=== PATIENT | female | born 1985 | race Caucasian/White ===

== ENCOUNTER 2016-10-19 22:00 | Emergency (ER) | payer MEDICAID ==
[2016-10-19 22:12] VITALS: BP 125/94; PULSE 104; RESP 18; TEMP 97.7; O2SAT 99
--- NOTE | 2016-10-19 22:38 | EDPHY ---
H & P Stated Complaint: shoulder injury s/p mechanical fall Time Seen by Provider: 10/19/16 22:12 HPI/ROS: CHIEF COMPLAINT: right shoulder injury HISTORY OF PRESENT ILLNESS: 31-year-old female arrives via private vehicle complaining of acute right shoulder pain after she sustained a mechanical fall this morning landing on her right shoulder. She has had reproducible pain ever since. No head injury. No midline C-spine pain. No peripheral paresthesia, weakness, numbness. Not a syncopal episode. Purely mechanical. REVIEW OF SYSTEMS: A ten point review of systems was performed and is negative with the exception of the items mentioned in the HPI PAST MEDICAL/SURGICAL HISTORY: Prior history of right AC separation SOCIAL HISTORY: denies alcohol use at time of incident PHYSICAL EXAM 1) GENERAL: Well-developed, well-nourished, alert and oriented. Appears to be in no acute distress. Answering questions appropriately. 2) HEAD: Normocephalic, atraumatic 3) HEENT: Pupils equal, round, reactive to light bilaterally. Negative Horners. Nasopharynx, oropharynx, clear. No deformity or angulation of nose. No septal hematoma. No rhinorrhea. No oral trauma. Ears bilaterally with normal tympanic membranes. No hemotympanum. No fluid or blood in the external auditory canal. No raccoon eyes. No Saldana sign. . 4) NECK: No cervical collar is on. Posterior cervical spine is nontender, no stepoff, no effusion. Full range of motion which does not elicit any midline cervical spine pain, no posterior midline tenderness, no step-off. 5) LUNGS: Clear to auscultation bilaterally, no wheezes, no rhonchi, no retractions. . 6) HEART: Regular rate and rhythm, 7) ABDOMEN: No guarding, no rebound, no focal tenderness, no peritoneal signs, no signs of trauma, no ecchymosis 8) MUSCULOSKELETAL: Right upper extremity: Area of erythema to the right scapula with underlying tenderness. Reproducible right shoulder pain with range of motion. No step-off. Bilateral deltoid sensation intact. Radial ulnar median nerve function intact. Moving all extremities, no focal areas of tenderness, no obvious trauma. 9) BACK: No midline vertebral tenderness, no fluctuance, no step-off, no obvious trauma, no visual or palpable abnormality. 10) SKIN: No laceration. No abrasion DIFFERENTIAL DIAGNOSIS: [ in no particular order including but not limited to fracture, dislocation, sprain, strain - Personal History LMP (Females 10-55): IUD In Place Current Tetanus Diphtheria and Acellular Pertussis (TDAP): Yes Tetanus Vaccine Date: within last 10 years - Medical/Surgical History Hx Asthma: No Hx Chronic Respiratory Disease: No Hx Diabetes: No Hx Cardiac Disease: Yes Hx Renal Disease: No Hx Cirrhosis: No Hx Alcoholism: No Hx HIV/AIDS: No Hx Splenectomy or Spleen Trauma: No Other PMH: anxiety, ADHD, shoulder issues, foot surgery, MVP - Social History Smoking Status: Current some day smoker Constitutional: Initial Vital Signs Temperature (C) 36.5 C 10/19/16 22:06 Heart Rate 104 H 10/19/16 22:06 Respiratory Rate 18 10/19/16 22:06 Blood Pressure 125/94 H 10/19/16 22:06 O2 Sat (%) 99 10/19/16 22:06 O2 Delivery Mode Room Air Allergies/Adverse Reactions: levofloxacin [From Levaquin] Allergy (Mild, Verified 10/05/14 10:38) body aches Home Medications: Medication Instructions Recorded Gabapentin [Fanatrex] 0 mg PO 02/28/11 AMITRIPTYLINE HCL [Amitriptyline 100 mg PO HS 10/05/14 100 mg] Amphet Asp and D/Amphet [Adderall] 10 mg PO DAILY 10/05/14 Escitalopram Oxalate [Lexapro 10 10 mg PO 10/05/14 MG] Zolpidem Tartrate [Ambien] 5 mg PO HS 10/05/14 Xanax 10/19/16 Medical Decision Making - Diagnostics Imaging Results: Xray of the right shoulder interpreted by myself: no definitive acute osseous abnormality ED Course/Re-evaluation: I had a lengthy discussion with the patient, informed her of the limitations of x-ray in the diagnosis of acute right shoulder injury. She has been informed that non osseous injury is not ruled out. Stressed orthopedic follow-up. She has her own pre-hospital sling. Discussed usage of sling and usual and customary orthopedic precautions and instructions Departure - Departure Disposition: Home, Routine, Self-Care Clinical Impression: Sprain of right shoulder Qualifiers: Encounter type: initial encounter Shoulder sprain type: unspecified sprain Qualified Code(s): S43.401A - Unspecified sprain of right shoulder joint, initial encounter Condition: Good Instructions: Shoulder Sprain (ED) Additional Instructions: Return to the ER immediately if you experience discoloration, have worsening pain, numbness, tingling, or any other symptoms that concern you. If you received x-rays in the emergency department today, be advised, that ligamentous , tendon, muscular, and other non-bony injury cannot be fully ruled out. Try to keep your affected extremity elevated above the level of your chest, and keep cold packs on the affected area, for the next 48 hours. Referrals: Nancy Cisneros MD [Medical Doctor] - 5-7 days, call for appt. (Dr. Nancy Cisneros orthopedic surgeon)
[2016-10-19] MEDS ORDERED: IBUPROFEN 600 MG TAB PO ONE (23:07)
== END 2016-10-19 23:00 | disposition home or self-care (01) ==
DX: S43.401A Unspecified sprain of right shoulder joint, initial encounter (principal); F17.200 Nicotine dependence, unspecified, uncomplicated; W18.39XA Other fall on same level, initial encounter; Y99.8 Other external cause status

== ENCOUNTER 2016-12-01 13:19 | Emergency (ER) | payer MEDICAID ==
[2016-12-01 13:25] VITALS: TEMP 98.2
[2016-12-01] MEDS ORDERED: LORazepam 1 MG TAB PO ONE ×2 (14:36→21:40)
--- NOTE | 2016-12-01 14:39 | EDPHY ---
H & P Stated Complaint: pt with insomnia/jp/therapist is out of town Source: Patient Exam Limitations: No limitations - Personal History LMP (Females 10-55): IUD In Place Current Tetanus/Diphtheria Vaccine: Yes Tetanus Vaccine Date: within last 10 years - Medical/Surgical History Hx Asthma: No Hx Chronic Respiratory Disease: No Hx Diabetes: No Hx Cardiac Disease: Yes Hx Renal Disease: No Hx Cirrhosis: No Hx Alcoholism: No Hx HIV/AIDS: No Hx Splenectomy or Spleen Trauma: No Other PMH: anxiety, ADHD, shoulder issues, foot surgery, MVP - Family History Significant Family History: No pertinent family hx - Social History Smoking Status: Current some day smoker Alcohol Use: Sober Drug Use: None Time Seen by Provider: 12/01/16 14:27 HPI/ROS: 2149:M1 hold. Patient signed over to Dr. Cerna at 10:00 p.m. shift change. ( Dakota Medrano) CHIEF COMPLAINT: Jp HISTORY OF PRESENT ILLNESS: Patient is a 31-year-old female with a recent diagnosis of bipolar 1 experiencing manic episode. She states that she has not slept in 4 days. She did not take her Adderall today but did take her Klonopin , Lexapro, gabapentin and amitriptyline. She states that she has been gardening for the last 48 hours. She states that her hands and legs are extremely sore. She denies any fevers or recent illness. She is followed by her therapist Ms Santillan. Her boyfriend brought her here for evaluation. She denies suicidality. She denies hallucinations but states that she has trouble controlling her thoughts. REVIEW OF SYSTEMS: Constitutional: denies: chills, fever, recent illness, recent injury EENTM: denies: blurred vision, double vision, nose congestion Respiratory: denies: cough, shortness of breath Cardiac: denies: chest pain, irregular heart rate, lightheadedness, palpitations Gastrointestinal/Abdominal: denies: abdominal pain, diarrhea, nausea, vomiting, blood streaked stools Genitourinary: denies: dysuria, frequency, hematuria, pain Musculoskeletal: denies: joint pain, muscle pain Skin: denies: lesions, rash, jaundice, bruising Neurological: denies: headache, numbness, paresthesia, tingling, dizziness, weakness Hematologic/Lymphatic: denies: blood clots, easy bleeding, easy bruising Immunologic/allergic: denies: HIV/AIDS, transplant EXAM: GENERAL: Anxious HEAD: Atraumatic, normocephalic. EYES: Pupils equal round and reactive to light, extraocular movements intact, sclera anicteric, conjunctiva are normal. ENT: TMs normal, nares patent, oropharynx clear without exudates. Moist mucous membranes. NECK: Normal range of motion, supple without lymphadenopathy or JVD. LUNGS: Breath sounds clear to auscultation bilaterally and equal. No wheezes rales or rhonchi. HEART: Regular rate and rhythm without murmurs, rubs or gallops. ABDOMEN: Soft, nontender, normoactive bowel sounds. No guarding, no rebound. No masses appreciated. BACK: No CVA tenderness, no spinal tenderness, step-offs or deformities EXTREMITIES: Normal range of motion, no pitting or edema. No clubbing or cyanosis. NEUROLOGICAL: Cranial nerves II through XII grossly intact. Normal speech, normal gait. 5/5 strength, normal movement in all extremities, normal sensation PSYCH: Anxious, tremulous, answers questions appropriately SKIN: Warm, dry, normal turgor, no visible rashes or lesions. (Kiran Mendez) Constitutional: Initial Vital Signs Temperature (C) 36.8 C 12/01/16 13:22 Heart Rate 114 H 12/01/16 13:22 Respiratory Rate 22 H 12/01/16 13:22 Blood Pressure 111/88 H 12/01/16 13:22 O2 Sat (%) 98 12/01/16 13:22 O2 Delivery Mode Room Air Allergies/Adverse Reactions: levofloxacin [From Levaquin] Allergy (Mild, Verified 10/05/14 10:38) body aches Home Medications: Medication Instructions Recorded Gabapentin [Fanatrex] 0 mg PO 02/28/11 AMITRIPTYLINE HCL [Amitriptyline 100 mg PO HS 10/05/14 100 mg] Amphet Asp and D/Amphet [Adderall] 10 mg PO DAILY 10/05/14 Escitalopram Oxalate [Lexapro 10 10 mg PO 10/05/14 MG] Zolpidem Tartrate [Ambien] 5 mg PO HS 10/05/14 Xanax 10/19/16 Medical Decision Making ED Course/Re-evaluation: 2217: [place] with mental health re-evaluated her. This patient not on M1 hold. This patient was to go to the [facility]. However patient declined to go to the [facility]. She has declined to go to the [facility]. Patient would like to go home. She is not suicidal or homicidal she is not acutely manic at this time. She has follow-up care in place. This was fine with mental health truck spotter EDINSON. I cannot keep this patient on an M1 hold. She does not meet M1 hold criteria she is not suicidal. (Dakota Medrano) 4:00 p.m. the patient has been medically cleared. She does have amphetamine her blood from her Adderall prescription. Mental Health will evaluate her now. She is not currently on a hold because she is not a flight risk. 6:55 p.m. the patient evaluated by [facility]. They plan to admit her to [facility] and will begin looking for placement. 9:00 p.m. we continue to await psychiatric placement. Care transferred to Dr. Dakota Medrano. (Kiran Mendez) Differential Diagnosis: Partial list of the Differential diagnosis considered include but were not limited to; depression, bipolar, jp, substance abuse and although unlikely based on the history and physical exam, I also considered infection, head injury. (Kiran Mendez) - Data Points Laboratory Results: Laboratory Results 12/01/16 13:50 12/01/16 13:50 Medications Given: Discontinued Medications Lorazepam (Ativan) 1 mg PO EDNOW ONE Stop: 12/01/16 14:37 Last Admin: 12/01/16 15:45 Dose: 1 mg Lorazepam (Ativan) 1 mg PO EDNOW ONE Stop: 12/01/16 21:41 Last Admin: 12/01/16 21:41 Dose: 1 mg Ondansetron HCl (Zofran Odt) 4 mg PO EDNOW ONE Stop: 12/01/16 21:41 Last Admin: 12/01/16 21:42 Dose: 4 mg Departure - Departure Disposition: Home, Routine, Self-Care Clinical Impression: Bipolar I disorder with jp Condition: Fair Instructions: Bipolar Disorder (ED) Additional Instructions: Return emergency room if you have any worsening symptoms questions or concerns includes further jp, or thoughts of hurting herself or somebody else. Referrals: [facility] [Clinic] - As per Instructions NONE *PRIMARY CARE P,. [Primary Care Provider] - As per Instructions
[2016-12-01 14:43] LABS: % IMMATURE GRANULYOCYTES 0.3 % (0.0-1.1); ABSOLUTE IMMATURE GRANULOCYTES 0.01 10^3/uL (0.00-0.10); ADD DIFF? NO; ADD MORPH? NO; ADD SCAN? NO; ATYPICAL LYMPHOCYTE FLAG 0 (0-99); FRAGMENT RBC FLAG 10 (0-99); HEMATOCRIT 37.4 % (38.0-47.0); HEMOGLOBIN 13.1 g/dL (12.6-16.3); LEFT SHIFT FLG 0 (0-99); LIPEMIA HEMOLYSIS FLAG 90 (0-99); MEAN CELL HEMOGLOBIN 31.9 pg (27.9-34.1); MEAN PLATELET VOLUME 10.1 fL (8.7-11.7); PLATELET CLUMPS FLAG 10 (0-99); PLATELET COUNT 264 10^3/uL (150-400); RED BLOOD CELL COUNT 4.11 10^6/uL (4.18-5.33); RED CELL DISTRIBUTION WIDTH 12.1 % (11.5-15.2)
[2016-12-01 14:47] LABS: ANION GAP 14 mEq/L (8-16); CALCIUM 9.3 mg/dL (8.5-10.4); CARBON DIOXIDE 22 mEq/l (22-31); CHLORIDE 107 mEq/L (97-110); CREATININE 0.8 mg/dL (0.6-1.0); ETHANOL SERUM < 10 mg/dL (0-10); GLOMERULAR FILTRATION RATE > 60; GLUCOSE 82 mg/dL (70-100); POTASSIUM 4.2 mEq/L (3.5-5.2); SODIUM 143 mEq/L (134-144)
[2016-12-01] MEDS ORDERED: ONDANSETRON DISINTEGRATING 4 MG TAB ONE ×2 (15:21→21:36)
[2016-12-01 19:38] VITALS: RESP 16
[2016-12-01] MEDS ORDERED: LORazepam 1 MG TAB ONE (21:36)
[2016-12-01] MEDS ORDERED: ONDANSETRON DISINTEGRATING 4 MG TAB PO ONE (21:40)
[2016-12-01 22:32] VITALS: BP 106/75; PULSE 85; O2SAT 96
== END 2016-12-01 22:32 | disposition home or self-care (01) ==
DX: F31.9 Bipolar disorder, unspecified (principal); F17.200 Nicotine dependence, unspecified, uncomplicated
CPT/HCPCS: 80305; G0480